=== PATIENT | female | born 1940 | race Caucasian/White ===

== ENCOUNTER 2019-07-03 19:12 | Inpatient (IN) ==
[2019-07-03] MEDS ORDERED: Furosemide 40 MG TABLET PO SCH (20:45)
[2019-07-03] MEDS ORDERED: Fluticasone Propionate Nasal 50 MCG/SPRAY BOTTLE NS SCH (21:00)
[2019-07-03] MEDS: ALPRAZolam 0.5 MG TABLET PO PRN (22:51)
[2019-07-03] MEDS: Apixaban 5 MG TABLET PO SCH (22:51)
[2019-07-03] MEDS: QUEtiapine Fumarate 100 MG TABLET PO SCH (22:51)
[2019-07-03] MEDS: Baclofen 10 MG TABLET PO SCH (22:52)
[2019-07-03] MEDS: Gabapentin 300 MG CAPSULE PO SCH (22:52)
[2019-07-03] MEDS: traZODone 50 MG TABLET PO PRN (22:52)
[2019-07-03] MEDS: Nafcillin 3,000 MG in 0.9 % Sodium Chloride 100 ML IVPB SCH (23:35)
[2019-07-03] MEDS ORDERED: Fluticasone Propionate Nasal 50 MCG/SPRAY BOTTLE NS PRN (23:53)
[2019-07-04] MEDS: Nafcillin 3,000 MG in 0.9 % Sodium Chloride 100 ML IVPB SCH ×3 (06:23→18:48)
[2019-07-04] MEDS ORDERED: rifAMPin 150 MG CAPSULE PO SCH (07:30)
[2019-07-04] MEDS ORDERED: Furosemide 20 MG TABLET PO SCH ×2 (09:00→15:00)
[2019-07-04] MEDS ORDERED: Furosemide 20 MG TABLET PO ONE (09:53)
[2019-07-04] MEDS: Loratadine 10 MG TABLET PO SCH (10:03)
[2019-07-04] MEDS: Gabapentin 300 MG CAPSULE PO SCH ×3 (10:03→21:52)
[2019-07-04] MEDS: Cholecalciferol (D-3) 1,000 UNIT (25MCG) TABLET PO SCH (10:04)
[2019-07-04] MEDS: carvediloL 6.25 MG TABLET PO SCH ×2 (10:04→16:14)
[2019-07-04] MEDS: Apixaban 5 MG TABLET PO SCH ×2 (10:04→21:54)
[2019-07-04] MEDS: Aspirin 81 MG TAB.CHEW PO SCH (10:04)
[2019-07-04] MEDS: amLODIPine 5 MG TABLET PO SCH (10:04)
[2019-07-04] MEDS: rifAMPin 150 MG CAPSULE PO SCH ×2 (10:04→16:14)
[2019-07-04] MEDS: Baclofen 10 MG TABLET PO SCH ×3 (10:04→21:53)
[2019-07-04] MEDS: Furosemide 40 MG TABLET PO SCH (16:15)
[2019-07-04] MEDS: QUEtiapine Fumarate 100 MG TABLET PO SCH (21:53)
[2019-07-04] MEDS: Famotidine 20 MG TABLET PO SCH (21:53)
[2019-07-04] MEDS: ALPRAZolam 0.5 MG TABLET PO PRN (23:00)
[2019-07-04] MEDS: Acetaminophen 325 MG TABLET PO PRN (23:00)
[2019-07-05] MEDS: Nafcillin 3,000 MG in 0.9 % Sodium Chloride 100 ML IVPB SCH ×4 (00:43→19:51)
[2019-07-05] MEDS: amLODIPine 5 MG TABLET PO SCH (08:49)
[2019-07-05] MEDS: carvediloL 6.25 MG TABLET PO SCH ×2 (08:49→16:13)
[2019-07-05] MEDS: rifAMPin 150 MG CAPSULE PO SCH ×3 (08:50→16:13)
[2019-07-05] MEDS: Apixaban 5 MG TABLET PO SCH ×2 (08:50→22:36)
[2019-07-05] MEDS: Furosemide 40 MG TABLET PO SCH ×2 (08:51→16:14)
[2019-07-05] MEDS: Aspirin 81 MG TAB.CHEW PO SCH (08:51)
[2019-07-05] MEDS: Baclofen 10 MG TABLET PO SCH ×3 (08:51→22:07)
[2019-07-05] MEDS: Loratadine 10 MG TABLET PO SCH (08:51)
[2019-07-05] MEDS: Gabapentin 300 MG CAPSULE PO SCH ×3 (08:52→22:07)
[2019-07-05] MEDS: Famotidine 20 MG TABLET PO SCH ×2 (08:52→22:08)
[2019-07-05] MEDS: Cholecalciferol (D-3) 1,000 UNIT (25MCG) TABLET PO SCH (08:52)
[2019-07-05] MEDS: Artificial Tears SOLN 15 ML BOTTLE BOTH EYES PRN (13:22)
[2019-07-05] MEDS: ALPRAZolam 0.5 MG TABLET PO PRN (20:00)
[2019-07-05] MEDS: Acetaminophen 325 MG TABLET PO PRN (20:00)
[2019-07-05] MEDS: QUEtiapine Fumarate 100 MG TABLET PO SCH (22:07)
[2019-07-05] MEDS: traZODone 50 MG TABLET PO PRN (22:08)
[2019-07-06] MEDS: Nafcillin 3,000 MG in 0.9 % Sodium Chloride 100 ML IVPB SCH ×3 (01:45→16:45)
[2019-07-06] MEDS: Gabapentin 300 MG CAPSULE PO SCH ×3 (09:14→20:12)
[2019-07-06] MEDS: amLODIPine 5 MG TABLET PO SCH (09:14)
[2019-07-06] MEDS: Aspirin 81 MG TAB.CHEW PO SCH (09:14)
[2019-07-06] MEDS: Baclofen 10 MG TABLET PO SCH ×3 (09:14→20:13)
[2019-07-06] MEDS: Famotidine 20 MG TABLET PO SCH ×2 (09:14→20:13)
[2019-07-06] MEDS: Loratadine 10 MG TABLET PO SCH (09:15)
[2019-07-06] MEDS: Furosemide 40 MG TABLET PO SCH ×2 (09:15→15:15)
[2019-07-06] MEDS: rifAMPin 150 MG CAPSULE PO SCH ×3 (09:16→16:45)
[2019-07-06] MEDS: carvediloL 6.25 MG TABLET PO SCH ×2 (09:17→16:46)
[2019-07-06] MEDS: Cholecalciferol (D-3) 1,000 UNIT (25MCG) TABLET PO SCH (09:17)
[2019-07-06] MEDS: Apixaban 5 MG TABLET PO SCH ×2 (09:17→20:13)
[2019-07-06] MEDS: ALPRAZolam 0.5 MG TABLET PO PRN ×3 (09:29→22:04)
[2019-07-06 10:48] LABS: Basophils # 0.1 K/mcL (0.0-0.2); Basophils % 0.9 %; Eosinophils # 0.2 K/mcL (0.0-0.6); Eosinophils % 3.9 %; Hematocrit 29.1 % (35.3-44.9); Hemoglobin 9.1 g/dL (11.5-15.4); Immature Granulocytes % 1.3 % (0-4); Lymphocytes # 0.8 K/mcL (0.6-4.6); Mean Corpuscular HGB Conc 31.3 g/dL (31.6-35.5); Mean Corpuscular Hemoglobin 30.4 pg (28.0-33.3); Mean Corpuscular Volume 97.3 fL (83.0-100.0); Mean Platelet Volume 9.2 fL (9.4-12.4); Monocytes # 0.4 K/mcL (0.0-1.3); Monocytes % 7.6 %; Neutrophils # 3.8 K/mcL (1.6-8.9); Platelet Count 193 K/mcL (140-400); Red Blood Count 2.99 M/mcL (3.82-4.97); Red Cell Distribution Width 18.5 % (11.5-14.5); Segmented Neutrophils % 71.3 %; White Blood Count 5.4 K/mcL (4.3-11.1)
[2019-07-06 11:11] LABS: Calcium 8.9 mg/dL (8.6-10.3); Potassium 3.2 mEq/L (3.5-5.1)
[2019-07-06] MEDS: QUEtiapine Fumarate 100 MG TABLET PO SCH (20:12)
[2019-07-06] MEDS: Acetaminophen 325 MG TABLET PO PRN (20:13)
[2019-07-06] MEDS: Artificial Tears SOLN 15 ML BOTTLE BOTH EYES PRN (20:17)
[2019-07-06] MEDS: traZODone 50 MG TABLET PO PRN (22:04)
[2019-07-07] MEDS: Nafcillin 3,000 MG in 0.9 % Sodium Chloride 100 ML IVPB SCH ×5 (06:36→20:06)
[2019-07-07] MEDS: rifAMPin 150 MG CAPSULE PO SCH ×3 (08:45→17:58)
[2019-07-07] MEDS: Apixaban 5 MG TABLET PO SCH ×2 (08:46→21:16)
[2019-07-07] MEDS: Gabapentin 300 MG CAPSULE PO SCH ×3 (08:46→21:16)
[2019-07-07] MEDS: amLODIPine 5 MG TABLET PO SCH (08:47)
[2019-07-07] MEDS: Cholecalciferol (D-3) 1,000 UNIT (25MCG) TABLET PO SCH (08:47)
[2019-07-07] MEDS: Aspirin 81 MG TAB.CHEW PO SCH (08:47)
[2019-07-07] MEDS: Furosemide 40 MG TABLET PO SCH ×3 (08:48→15:17)
[2019-07-07] MEDS: Famotidine 20 MG TABLET PO SCH ×2 (08:49→21:14)
[2019-07-07] MEDS: Loratadine 10 MG TABLET PO SCH (08:52)
[2019-07-07] MEDS: carvediloL 6.25 MG TABLET PO SCH ×2 (08:52→17:59)
[2019-07-07] MEDS: Baclofen 10 MG TABLET PO SCH ×3 (08:53→21:14)
[2019-07-07] MEDS: ALPRAZolam 0.5 MG TABLET PO PRN ×2 (13:55→21:16)
[2019-07-07] MEDS: Artificial Tears SOLN 15 ML BOTTLE BOTH EYES PRN (13:56)
[2019-07-07] MEDS: Acetaminophen 325 MG TABLET PO PRN (20:05)
[2019-07-07] MEDS: QUEtiapine Fumarate 100 MG TABLET PO SCH (21:16)
[2019-07-07] MEDS: traZODone 50 MG TABLET PO PRN (21:36)
[2019-07-08] MEDS: Nafcillin 3,000 MG in 0.9 % Sodium Chloride 100 ML IVPB SCH ×5 (02:35→23:33)
[2019-07-08] MEDS: rifAMPin 150 MG CAPSULE PO SCH ×3 (09:34→17:35)
[2019-07-08] MEDS: carvediloL 6.25 MG TABLET PO SCH ×2 (09:34→17:36)
[2019-07-08] MEDS: Aspirin 81 MG TAB.CHEW PO SCH (09:36)
[2019-07-08] MEDS: Loratadine 10 MG TABLET PO SCH (09:38)
[2019-07-08] MEDS: Apixaban 5 MG TABLET PO SCH ×2 (09:39→21:32)
[2019-07-08] MEDS: Baclofen 10 MG TABLET PO SCH ×3 (09:41→16:38)
[2019-07-08] MEDS: Gabapentin 300 MG CAPSULE PO SCH ×3 (09:43→21:32)
[2019-07-08] MEDS: Famotidine 20 MG TABLET PO SCH ×2 (09:44→21:33)
[2019-07-08] MEDS: amLODIPine 5 MG TABLET PO SCH (09:44)
[2019-07-08] MEDS: Cholecalciferol (D-3) 1,000 UNIT (25MCG) TABLET PO SCH (09:47)
[2019-07-08] MEDS: ALPRAZolam 0.5 MG TABLET PO PRN ×2 (09:53→21:33)
[2019-07-08] MEDS: Acetaminophen 325 MG TABLET PO PRN ×2 (13:39→21:32)
[2019-07-08] MEDS: Artificial Tears SOLN 15 ML BOTTLE BOTH EYES PRN ×2 (13:44→22:32)
[2019-07-08] MEDS: Furosemide 40 MG TABLET PO SCH (15:49)
[2019-07-08] MEDS: QUEtiapine Fumarate 100 MG TABLET PO SCH (21:32)
[2019-07-08] MEDS: traZODone 50 MG TABLET PO PRN (22:09)
[2019-07-09] MEDS: Nafcillin 3,000 MG in 0.9 % Sodium Chloride 100 ML IVPB SCH ×3 (05:35→19:34)
[2019-07-09 05:59] LABS: Basophils % 0.7 %; Eosinophils # 0.2 K/mcL (0.0-0.6); Eosinophils % 4.1 %; Immature Granulocytes % 0.7 % (0-4); Lymphocytes # 0.7 K/mcL (0.6-4.6); Lymphocytes % 17.7 %; Mean Corpuscular HGB Conc 30.4 g/dL (31.6-35.5); Mean Corpuscular Hemoglobin 30.4 pg (28.0-33.3); Mean Platelet Volume 9.5 fL (9.4-12.4); Monocytes # 0.3 K/mcL (0.0-1.3); Monocytes % 7.3 %; Neutrophils # 2.9 K/mcL (1.6-8.9); Platelet Count 166 K/mcL (140-400); Red Cell Distribution Width 19.1 % (11.5-14.5); Segmented Neutrophils % 69.5 %; White Blood Count 4.1 K/mcL (4.3-11.1)
[2019-07-09 06:19] LABS: Alanine Aminotransferase 10 Units/L (7-52); Albumin 2.6 g/dL (3.5-5.7); Albumin/Globulin Ratio 0.9 (1.1-2.2); Alkaline Phosphatase 67 Units/L (34-104); Aspartate Amino Transferase 15 Units/L (13-39); BUN/Creatinine Ratio 20 (6-26); Bilirubin,Direct 0.2 mg/dL (0.0-0.2); Bilirubin,Indirect 0.2 mg/dL (0.0-1.0); Bilirubin,Total 0.4 mg/dL (0.3-1.0); Blood Urea Nitrogen 34 mg/dL (8-23); Globulin 2.8 g/dL (2.4-3.5); Total Protein 5.4 g/dL (6.4-8.9); eGFR For African Americans 35 (> 60); eGFR For Non-African Americans 29 (> 60)
[2019-07-09] MEDS: Apixaban 5 MG TABLET PO SCH ×2 (07:56→19:42)
[2019-07-09] MEDS: Aspirin 81 MG TAB.CHEW PO SCH (07:56)
[2019-07-09] MEDS: Cholecalciferol (D-3) 1,000 UNIT (25MCG) TABLET PO SCH (08:34)
[2019-07-09] MEDS: rifAMPin 150 MG CAPSULE PO SCH ×3 (08:34→18:13)
[2019-07-09] MEDS: Baclofen 10 MG TABLET PO SCH ×3 (08:35→19:42)
[2019-07-09] MEDS: carvediloL 6.25 MG TABLET PO SCH ×2 (08:35→18:13)
[2019-07-09] MEDS: Acetaminophen 325 MG TABLET PO PRN ×2 (08:36→19:49)
[2019-07-09] MEDS: Furosemide 40 MG TABLET PO SCH ×2 (08:37→15:32)
[2019-07-09] MEDS: Gabapentin 300 MG CAPSULE PO SCH ×3 (08:37→19:43)
[2019-07-09] MEDS: Loratadine 10 MG TABLET PO SCH (08:37)
[2019-07-09] MEDS: Famotidine 20 MG TABLET PO SCH ×2 (08:38→19:42)
[2019-07-09] MEDS: amLODIPine 5 MG TABLET PO SCH (08:38)
[2019-07-09 09:37] LABS: Estimated Average Glucose 111 mg/dl
[2019-07-09] MEDS ORDERED: 0.9 % Sodium Chloride 250 ML IVC SCH (09:45)
[2019-07-09 10:13] LABS: C-Reactive Protein 46 mg/L (Less than 10)
[2019-07-09] MEDS: ALPRAZolam 0.5 MG TABLET PO PRN (15:43)
[2019-07-09] MEDS: QUEtiapine Fumarate 100 MG TABLET PO SCH (21:41)
[2019-07-09] MEDS: traZODone 50 MG TABLET PO PRN (21:41)
[2019-07-10] MEDS: Nafcillin 3,000 MG in 0.9 % Sodium Chloride 100 ML IVPB SCH ×3 (02:00→16:59)
[2019-07-10 08:13] LABS: Basophils % 0.9 %; Eosinophils # 0.2 K/mcL (0.0-0.6); Eosinophils % 4.6 %; Hematocrit 24.3 % (35.3-44.9); Hemoglobin 7.5 g/dL (11.5-15.4); Immature Granulocytes % 0.7 % (0-4); Lymphocytes # 0.6 K/mcL (0.6-4.6); Lymphocytes % 14.4 %; Mean Corpuscular HGB Conc 30.9 g/dL (31.6-35.5); Mean Corpuscular Hemoglobin 30.6 pg (28.0-33.3); Mean Corpuscular Volume 99.2 fL (83.0-100.0); Mean Platelet Volume 9.8 fL (9.4-12.4); Monocytes # 0.3 K/mcL (0.0-1.3); Monocytes % 7.8 %; Neutrophils # 3.1 K/mcL (1.6-8.9); Platelet Count 167 K/mcL (140-400); Red Blood Count 2.45 M/mcL (3.82-4.97); Red Cell Distribution Width 20.3 % (11.5-14.5); Segmented Neutrophils % 71.6 %; White Blood Count 4.4 K/mcL (4.3-11.1)
[2019-07-10] MEDS: rifAMPin 150 MG CAPSULE PO SCH ×3 (08:23→17:10)
[2019-07-10] MEDS: carvediloL 6.25 MG TABLET PO SCH ×2 (08:24→17:07)
[2019-07-10] MEDS: Furosemide 40 MG TABLET PO SCH ×2 (08:24→14:53)
[2019-07-10 08:27] LABS: % Iron Saturation 33 % (15-50); Iron 76 mcg/dL (50-170); Transferrin 164 mg/dL (203-362)
[2019-07-10] MEDS: Loratadine 10 MG TABLET PO SCH (08:27)
[2019-07-10] MEDS: Apixaban 5 MG TABLET PO SCH (08:28)
[2019-07-10] MEDS: Baclofen 10 MG TABLET PO SCH ×3 (08:28→20:30)
[2019-07-10] MEDS: Gabapentin 300 MG CAPSULE PO SCH ×3 (08:30→20:30)
[2019-07-10] MEDS: amLODIPine 5 MG TABLET PO SCH (08:30)
[2019-07-10] MEDS: Famotidine 20 MG TABLET PO SCH ×2 (08:31→20:30)
[2019-07-10] MEDS: Cholecalciferol (D-3) 1,000 UNIT (25MCG) TABLET PO SCH (08:32)
[2019-07-10 08:46] LABS: Ferritin 107 ng/mL (10-120)
[2019-07-10 08:51] LABS: Folate 6.8 ng/mL (3.0-16.0)
[2019-07-10] MEDS ORDERED: 0.9 % Sodium Chloride 1,000 ML ONE (14:49)
[2019-07-10] MEDS: ALPRAZolam 0.5 MG TABLET PO PRN (17:08)
[2019-07-10] MEDS: Acetaminophen 325 MG TABLET PO PRN (17:08)
[2019-07-10 19:27] LABS: Hematocrit 26.5 % (35.3-44.9); Hemoglobin 8.3 g/dL (11.5-15.4)
[2019-07-10] MEDS: traZODone 50 MG TABLET PO PRN (22:06)
[2019-07-10] MEDS: QUEtiapine Fumarate 100 MG TABLET PO SCH (22:06)
[2019-07-11] MEDS: Nafcillin 3,000 MG in 0.9 % Sodium Chloride 100 ML IVPB SCH ×5 (00:01→21:11)
[2019-07-11 06:25] LABS: Basophils % 0.7 %; Eosinophils # 0.2 K/mcL (0.0-0.6); Eosinophils % 4.6 %; Hematocrit 25.7 % (35.3-44.9); Hemoglobin 8.1 g/dL (11.5-15.4); Immature Granulocytes % 0.7 % (0-4); Lymphocytes # 0.6 K/mcL (0.6-4.6); Lymphocytes % 15.5 %; Mean Corpuscular HGB Conc 31.5 g/dL (31.6-35.5); Mean Corpuscular Hemoglobin 30.7 pg (28.0-33.3); Mean Corpuscular Volume 97.3 fL (83.0-100.0); Mean Platelet Volume 9.4 fL (9.4-12.4); Monocytes # 0.3 K/mcL (0.0-1.3); Monocytes % 8.3 %; Neutrophils # 2.9 K/mcL (1.6-8.9); Platelet Count 155 K/mcL (140-400); Red Blood Count 2.64 M/mcL (3.82-4.97); Segmented Neutrophils % 70.2 %; White Blood Count 4.1 K/mcL (4.3-11.1)
[2019-07-11 07:09] LABS: Calcium 8.6 mg/dL (8.6-10.3)
[2019-07-11] MEDS ORDERED: acetaZOLAMIDE 250 MG TABLET PO SCH (09:00)
[2019-07-11] MEDS: Baclofen 10 MG TABLET PO SCH ×3 (09:09→21:10)
[2019-07-11] MEDS: Gabapentin 300 MG CAPSULE PO SCH ×3 (09:09→21:10)
[2019-07-11] MEDS: Loratadine 10 MG TABLET PO SCH (09:10)
[2019-07-11] MEDS: Cholecalciferol (D-3) 1,000 UNIT (25MCG) TABLET PO SCH (09:10)
[2019-07-11] MEDS: carvediloL 6.25 MG TABLET PO SCH ×2 (09:11→15:46)
[2019-07-11] MEDS: rifAMPin 150 MG CAPSULE PO SCH ×3 (09:11→15:46)
[2019-07-11] MEDS: Famotidine 20 MG TABLET PO SCH ×2 (09:13→21:10)
[2019-07-11] MEDS: Furosemide 40 MG TABLET PO SCH (09:14)
[2019-07-11] MEDS: Artificial Tears SOLN 15 ML BOTTLE BOTH EYES PRN (09:15)
[2019-07-11] MEDS: amLODIPine 5 MG TABLET PO SCH (09:15)
[2019-07-11] MEDS: ALPRAZolam 0.5 MG TABLET PO PRN ×2 (11:45→21:11)
[2019-07-11] MEDS: Acetaminophen 325 MG TABLET PO PRN ×2 (11:45→21:10)
[2019-07-11 18:18] LABS: Hematocrit 25.8 % (35.3-44.9)
[2019-07-11] MEDS: QUEtiapine Fumarate 100 MG TABLET PO SCH (21:10)
[2019-07-11] MEDS: traZODone 50 MG TABLET PO PRN (21:10)
[2019-07-11] MEDS: acetaZOLAMIDE 250 MG TABLET PO SCH (21:11)
[2019-07-12 07:14] LABS: Eosinophils # 0.2 K/mcL (0.0-0.6); Eosinophils % 5.5 %; Hematocrit 29.1 % (35.3-44.9); Hemoglobin 8.8 g/dL (11.5-15.4); Immature Granulocytes % 0.2 % (0-4); Lymphocytes # 0.7 K/mcL (0.6-4.6); Lymphocytes % 17.1 %; Mean Corpuscular HGB Conc 30.2 g/dL (31.6-35.5); Mean Corpuscular Hemoglobin 30.9 pg (28.0-33.3); Mean Corpuscular Volume 102.1 fL (83.0-100.0); Mean Platelet Volume 9.6 fL (9.4-12.4); Monocytes # 0.4 K/mcL (0.0-1.3); Monocytes % 9.5 %; Neutrophils # 2.8 K/mcL (1.6-8.9); Platelet Count 147 K/mcL (140-400); Red Blood Count 2.85 M/mcL (3.82-4.97); Red Cell Distribution Width 20.2 % (11.5-14.5); Segmented Neutrophils % 66.7 %; White Blood Count 4.2 K/mcL (4.3-11.1)
[2019-07-12 07:26] LABS: Calcium 9.1 mg/dL (8.6-10.3); Potassium 3.3 mEq/L (3.5-5.1)
[2019-07-12] MEDS: Nafcillin 3,000 MG in 0.9 % Sodium Chloride 100 ML IVPB SCH ×4 (09:00→22:24)
[2019-07-12] MEDS: Cholecalciferol (D-3) 1,000 UNIT (25MCG) TABLET PO SCH (09:33)
[2019-07-12] MEDS: ALPRAZolam 1 MG TABLET PO SCH (09:33)
[2019-07-12] MEDS: Famotidine 20 MG TABLET PO SCH ×2 (09:34→22:26)
[2019-07-12] MEDS: Gabapentin 300 MG CAPSULE PO SCH ×3 (09:34→22:27)
[2019-07-12] MEDS: Baclofen 10 MG TABLET PO SCH ×3 (09:36→22:26)
[2019-07-12] MEDS: carvediloL 6.25 MG TABLET PO SCH ×2 (09:36→17:11)
[2019-07-12] MEDS: Loratadine 10 MG TABLET PO SCH (09:37)
[2019-07-12] MEDS: amLODIPine 5 MG TABLET PO SCH (09:38)
[2019-07-12] MEDS: rifAMPin 150 MG CAPSULE PO SCH ×3 (09:38→17:12)
[2019-07-12] MEDS: acetaZOLAMIDE 250 MG TABLET PO SCH ×2 (09:39→22:26)
[2019-07-12] MEDS: Acetaminophen 325 MG TABLET PO PRN ×2 (13:27→22:27)
[2019-07-12] MEDS: Artificial Tears SOLN 15 ML BOTTLE BOTH EYES PRN (14:40)
[2019-07-12] MEDS ORDERED: *HR* HYDROcodone/Acet 5/325 mg TABLET PO ONE (16:29)
[2019-07-12] MEDS: traZODone 50 MG TABLET PO PRN (22:25)
[2019-07-12] MEDS: ALPRAZolam 0.5 MG TABLET PO PRN (22:25)
[2019-07-12] MEDS: QUEtiapine Fumarate 100 MG TABLET PO SCH (22:27)
[2019-07-13] MEDS: Nafcillin 3,000 MG in 0.9 % Sodium Chloride 100 ML IVPB SCH ×4 (00:54→21:58)
[2019-07-13] MEDS ORDERED: *HR* HYDROcodone/Acet 5/325 mg TABLET PO PRN ×2 (09:11→09:30)
[2019-07-13] MEDS: ALPRAZolam 1 MG TABLET PO SCH (09:37)
[2019-07-13] MEDS: rifAMPin 150 MG CAPSULE PO SCH ×3 (09:38→17:36)
[2019-07-13] MEDS: Cholecalciferol (D-3) 1,000 UNIT (25MCG) TABLET PO SCH (09:39)
[2019-07-13] MEDS: Gabapentin 300 MG CAPSULE PO SCH ×3 (09:39→22:04)
[2019-07-13] MEDS: Aspirin 81 MG TAB.CHEW PO SCH (09:39)
[2019-07-13] MEDS: Famotidine 20 MG TABLET PO SCH ×2 (09:40→22:04)
[2019-07-13] MEDS: amLODIPine 5 MG TABLET PO SCH (09:40)
[2019-07-13] MEDS: Baclofen 10 MG TABLET PO SCH ×3 (09:40→22:03)
[2019-07-13] MEDS: Loratadine 10 MG TABLET PO SCH (09:41)
[2019-07-13] MEDS: carvediloL 6.25 MG TABLET PO SCH ×2 (09:41→17:36)
[2019-07-13] MEDS: acetaZOLAMIDE 250 MG TABLET PO SCH ×2 (09:42→22:01)
[2019-07-13] MEDS: Acetaminophen 325 MG TABLET PO PRN (12:29)
[2019-07-13] MEDS: Furosemide 40 MG TABLET PO SCH ×2 (17:36→18:45)
[2019-07-13] MEDS ORDERED: Furosemide 20 MG/2 ML VIAL IVP ONE (18:19)
[2019-07-13] MEDS: Apixaban 5 MG TABLET PO SCH (22:02)
[2019-07-13] MEDS: QUEtiapine Fumarate 100 MG TABLET PO SCH (22:03)
[2019-07-14] MEDS: Nafcillin 3,000 MG in 0.9 % Sodium Chloride 100 ML IVPB SCH ×5 (05:52→23:06)
[2019-07-14 08:19] LABS: Hematocrit 26.6 % (35.3-44.9); Mean Corpuscular HGB Conc 30.1 g/dL (31.6-35.5); Mean Corpuscular Hemoglobin 31.6 pg (28.0-33.3); Mean Corpuscular Volume 105.1 fL (83.0-100.0); Mean Platelet Volume 8.9 fL (9.4-12.4); Platelet Count 142 K/mcL (140-400); Red Blood Count 2.53 M/mcL (3.82-4.97); White Blood Count 4.7 K/mcL (4.3-11.1)
[2019-07-14 08:35] LABS: Calcium 9.3 mg/dL (8.6-10.3); Potassium 3.3 mEq/L (3.5-5.1)
[2019-07-14] MEDS: Aspirin 81 MG TAB.CHEW PO SCH (09:32)
[2019-07-14] MEDS: Baclofen 10 MG TABLET PO SCH ×3 (09:32→20:20)
[2019-07-14] MEDS: acetaZOLAMIDE 250 MG TABLET PO SCH ×2 (09:32→20:20)
[2019-07-14] MEDS: carvediloL 6.25 MG TABLET PO SCH ×2 (09:33→16:04)
[2019-07-14] MEDS: Famotidine 20 MG TABLET PO SCH ×2 (09:33→20:21)
[2019-07-14] MEDS: Cholecalciferol (D-3) 1,000 UNIT (25MCG) TABLET PO SCH (09:33)
[2019-07-14] MEDS: rifAMPin 150 MG CAPSULE PO SCH ×3 (09:33→16:04)
[2019-07-14] MEDS: Apixaban 5 MG TABLET PO SCH ×2 (09:33→20:21)
[2019-07-14] MEDS: amLODIPine 5 MG TABLET PO SCH (09:34)
[2019-07-14] MEDS: Loratadine 10 MG TABLET PO SCH (09:34)
[2019-07-14] MEDS: Gabapentin 300 MG CAPSULE PO SCH ×3 (09:34→20:21)
[2019-07-14] MEDS: ALPRAZolam 1 MG TABLET PO SCH (09:35)
[2019-07-14] MEDS: Furosemide 40 MG TABLET PO SCH ×2 (09:35→16:04)
[2019-07-14] MEDS: Ondansetron ODT 4 MG TAB.RAPDIS SL PRN (12:39)
[2019-07-14] MEDS ORDERED: Furosemide 40 MG TABLET PO SCH (15:00)
[2019-07-14] MEDS ORDERED: Potassium Chloride Elixir 20 MEQ/15 ML UDC PO ONE (15:26)
[2019-07-14 19:03] LABS: ABG Base Excess 4 mEq/L (-2 to 3); ABG HCO3 35 mEq/L (21-27); ABG Oxygen Saturation 93 % (95-98); ABG PCO2 87 mmHg (35-45); ABG PH 7.21 pH Units (7.32-7.45); ABG PO2 85 mmHg (85-104); ABG TCO2 38 mEq/L (20-26)
[2019-07-14] MEDS: QUEtiapine Fumarate 100 MG TABLET PO SCH (20:21)
[2019-07-14 22:06] LABS: ABG Base Excess 4 mEq/L (-2 to 3); ABG HCO3 33 mEq/L (21-27); ABG Oxygen Saturation 89 % (95-98); ABG PCO2 74 mmHg (35-45); ABG PH 7.25 pH Units (7.32-7.45); ABG PO2 69 mmHg (85-104); ABG TCO2 35 mEq/L (20-26)
[2019-07-15] MEDS: Nafcillin 3,000 MG in 0.9 % Sodium Chloride 100 ML IVPB SCH ×3 (05:03→17:28)
[2019-07-15 06:45] LABS: Hematocrit 24.6 % (35.3-44.9); Hemoglobin 7.3 g/dL (11.5-15.4); Mean Corpuscular HGB Conc 29.7 g/dL (31.6-35.5); Mean Corpuscular Hemoglobin 31.2 pg (28.0-33.3); Mean Corpuscular Volume 105.1 fL (83.0-100.0); Mean Platelet Volume 9.9 fL (9.4-12.4); Platelet Count 136 K/mcL (140-400); Red Blood Count 2.34 M/mcL (3.82-4.97); White Blood Count 4.5 K/mcL (4.3-11.1)
[2019-07-15 07:20] LABS: Calcium 9.1 mg/dL (8.6-10.3); Potassium 3.1 mEq/L (3.5-5.1)
[2019-07-15] MEDS: acetaZOLAMIDE 250 MG TABLET PO SCH ×2 (08:34→20:13)
[2019-07-15] MEDS: Furosemide 40 MG TABLET PO SCH ×2 (08:35→17:17)
[2019-07-15] MEDS: Loratadine 10 MG TABLET PO SCH (08:35)
[2019-07-15] MEDS: Cholecalciferol (D-3) 1,000 UNIT (25MCG) TABLET PO SCH (08:35)
[2019-07-15] MEDS: Famotidine 20 MG TABLET PO SCH ×2 (08:35→20:14)
[2019-07-15] MEDS: Apixaban 5 MG TABLET PO SCH (08:35)
[2019-07-15] MEDS: amLODIPine 5 MG TABLET PO SCH (08:35)
[2019-07-15] MEDS: Aspirin 81 MG TAB.CHEW PO SCH (08:36)
[2019-07-15] MEDS: rifAMPin 150 MG CAPSULE PO SCH ×3 (08:36→17:17)
[2019-07-15] MEDS: carvediloL 6.25 MG TABLET PO SCH ×2 (08:36→17:17)
[2019-07-15] MEDS: ALPRAZolam 1 MG TABLET PO SCH (08:42)
[2019-07-15] MEDS: Gabapentin 300 MG CAPSULE PO SCH ×3 (08:42→20:14)
[2019-07-15] MEDS: Baclofen 10 MG TABLET PO SCH ×3 (08:42→20:14)
[2019-07-15 17:14] LABS: Hematocrit 23.5 % (35.3-44.9)
[2019-07-15 19:36] LABS: ABG Base Excess 4 mEq/L (-2 to 3); ABG HCO3 32 mEq/L (21-27); ABG Oxygen Saturation 98 % (95-98); ABG PCO2 63 mmHg (35-45); ABG PH 7.31 pH Units (7.32-7.45); ABG PO2 113 mmHg (85-104); ABG TCO2 34 mEq/L (20-26)
[2019-07-15] MEDS ORDERED: 0.9 % Sodium Chloride 250 ML ONE (19:42)
[2019-07-15] MEDS: QUEtiapine Fumarate 100 MG TABLET PO SCH (20:15)
[2019-07-15] MEDS: ALPRAZolam 0.5 MG TABLET PO PRN (20:20)
[2019-07-15] MEDS: Acetaminophen 325 MG TABLET PO PRN (20:20)
[2019-07-15] MEDS: Ondansetron ODT 4 MG TAB.RAPDIS SL PRN (22:19)
[2019-07-16] MEDS: Nafcillin 3,000 MG in 0.9 % Sodium Chloride 100 ML IVPB SCH ×2 (00:05→05:57)
[2019-07-16 01:55] LABS: Hematocrit 27.2 % (35.3-44.9); Hemoglobin 8.4 g/dL (11.5-15.4)
[2019-07-16] MEDS ORDERED: 0.9 % Sodium Chloride 250 ML ONE (02:05)
[2019-07-16 06:43] VITALS: BP 150/80
[2019-07-16] MEDS: Acetaminophen 325 MG TABLET PO PRN (08:45)
[2019-07-16 09:16] LABS: Hematocrit 29.7 % (35.3-44.9); Hemoglobin 9.2 g/dL (11.5-15.4); Mean Corpuscular Hemoglobin 31.1 pg (28.0-33.3); Mean Corpuscular Volume 100.3 fL (83.0-100.0); Mean Platelet Volume 9.6 fL (9.4-12.4); Platelet Count 153 K/mcL (140-400); Red Blood Count 2.96 M/mcL (3.82-4.97); Red Cell Distribution Width 20.9 % (11.5-14.5)
[2019-07-16 09:28] LABS: Calcium 9.4 mg/dL (8.6-10.3); Potassium 3.6 mEq/L (3.5-5.1)
== END 2019-07-16 10:30 | disposition short-term general hospital (02) | DRG 945 ==
LOC: INPPIK 19:25
PROVIDERS: ADMIT Family Medicine; ATTEND Family Medicine